=== PATIENT | female | born 1960 | race Native Hawaiian/Other Pacific Islander ===

== ENCOUNTER 2021-01-15 16:46 | Outpatient (CLI) | payer OTHER | END 2021-01-15 21:19 | disposition home or self-care (01) | LOC: INF 16:46 | PROVIDERS: ATTEND Internal Medicine | DX: Z23 Encounter for immunization (principal) | CPT/HCPCS: 96372 ==

== ENCOUNTER 2021-02-11 10:44 | Outpatient (CLI) | payer OTHER | END 2021-02-11 20:19 | disposition home or self-care (01) | LOC: INF 10:44 | PROVIDERS: ATTEND Internal Medicine | DX: Z23 Encounter for immunization (principal) | CPT/HCPCS: 96372 ==